=== PATIENT | female | born 1960 | race Caucasian/White ===

== ENCOUNTER 2019-06-07 18:23 | Emergency (ER) | payer BC ==
[~2019-06-07] VITALS: Ht 170.2 cm; Wt 72.7 kg
[~2019-06-07 18:23] MED LIST: BAYER CHEWABLE81 MG PO; CELEXA20 MG PO; HYDROCHLOROTHIA25 MG PO; HYDROCODON-ACE1 EAC7 PO; HYDROCODONE-APA1 TAB PO; IBUPROFEN600 MG PO; SYNTHROID125 MCG PO; VERAPAMIL HCL40 MG PO; ZESTRIL40 MG PO
[2019-06-07 19:28] VITALS: Ht 170.2 cm; Wt 72.7 kg
[2019-06-07 20:03] LABS: BASOPHILS 0.3 % (0-2); HEMOGLOBIN 13.5 g/dL (12-16); IMMATURE GRANULOCYTES 0.2 % (0-5); MCH 32.1 pg (26.0-34.0); MCHC 34.6 g/dL (31.0-37.0); MCV 92.6 fL (80.0-100.0); MEAN PLATELET VOLUME 8.8 fL (7.4-10.4); MONOCYTES 8.9 % (2-11); NEUTROPHILS 40.6 % (40-80); PLATELET COUNT 224 10x3/uL (130-400); RBC 4.21 10x6/uL (4.00-5.40); RDW 13.5 % (11.5-14.5); WBC 6.3 10x3/uL (4.8-10.8)
[2019-06-07 20:19] LABS: ALBUMIN 3.8 g/dL (3.4-5.0); ANION GAP 12.9 mmol/L (8-16); BILIRUBIN - TOTAL 0.66 mg/dL (0.2-1.3); CALCIUM 8.3 mg/dL (8.5-10.1); CARBON DIOXIDE 28.6 mmol/L (21.0-32.0); CREATININE - SERUM 0.9 mg/dL (0.6-1.3); POTASSIUM - SERUM 3.5 mmol/L (3.5-5.1)
[2019-06-07 20:28] LABS: MAGNESIUM - SERUM 2.1 mg/dL (1.8-2.4); THYROID STIMULATING HORMONE 2.15 uIU/mL (0.36-3.74)
[2019-06-07 20:57] LABS: APPEARANCE CLEAR (CLEAR); BILIRUBIN NEGATIVE (NEGATIVE); COLOR YELLOW (YELLOW); GLUCOSE NEGATIVE (NEGATIVE); KETONE NEGATIVE (NEGATIVE); NITRITE NEGATIVE (NEGATIVE); PROTEIN TRACE mg/dL (NEGATIVE); UROBILINOGEN NORMAL (NORMAL)
[2019-06-07 21:02] LABS: BACTERIA FEW /hpf (NONE SEEN); EPITHELIAL CELLS 0-5 /hpf (0-5); RED CELLS - URINE 0-5 /hpf (0-5); WHITE CELLS - URINE 0-5 /hpf (0-5)
[2019-06-07 21:07] LABS: UDS - AMPHET NEGATIVE QUAL (NEGATIVE); UDS - BARB NEGATIVE QUAL (NEGATIVE); UDS - BENZO NEGATIVE QUAL (NEGATIVE); UDS - COCAINE NEGATIVE QUAL (NEGATIVE); UDS - OPIATE NEGATIVE QUAL (NEGATIVE); UDS - PCP NEGATIVE QUAL (NEGATIVE); UDS - THC NEGATIVE QUAL (NEGATIVE)
[2019-06-08 02:48] VITALS: BP 87/55
--- NOTE | 2019-06-08 05:31 | NUR ---
DR PAYNE NOTIFIED AND REVIEWED PT'S BEHAVIOR AND ASSESSMENT RESULTS. PT IS A LOW RISK PER DR PAYNE. DR PAYNE STATED TO GIVE RESOURCES TO PT AT TIME OF DISCHARGE. NO FURTHER ORDERS AT THIS TIME. RESOURCES REVIEWED WITH PT AND SHE VERBALIZED UNDERSTANDNG.
[2019-06-08 07:59] LABS: INR 0.93 (0.85-1.17)
[2019-06-08 08:00] LABS: APTT 27.1 SECONDS (22.8-39.4)
== END 2019-06-08 10:44 ==
LOC: D.ER 18:23
PROVIDERS: Emergency Medicine; Family Medicine
DX: F32.9 Major depressive disorder, single episode, unspecified (principal)

== ENCOUNTER 2020-04-28 07:12 | Inpatient (IN) | payer BC ==
[~2020-04-28] VITALS: Ht 170.2 cm; Wt 81.6 kg
[2020-04-28 07:55] LABS: BASOPHILS 0.1 % (0-2); EOSINOPHILS 1.4 % (0-7); HEMATOCRIT 39.7 % (36.0-48.0); HEMOGLOBIN 13.4 g/dL (12-16); IMMATURE GRANULOCYTES 0.1 % (0-5); LYMPHOCYTES 16.9 % (15-50); MCH 31.8 pg (26.0-34.0); MCHC 33.8 g/dL (31.0-37.0); MCV 94.1 fL (80.0-100.0); MEAN PLATELET VOLUME 9.4 fL (7.4-10.4); MONOCYTES 6.9 % (2-11); NEUTROPHILS 74.6 % (40-80); RBC 4.22 10x6/uL (4.00-5.40); RDW 12.5 % (11.5-14.5)
[2020-04-28 07:57] LABS: PLATELET COUNT 170 10x3/uL (130-400)
[2020-04-28 08:03] LABS: CALC OSMOLALITY 267 mosm/kg (275-300); CALCIUM 8.9 mg/dL (8.5-10.1); CARBON DIOXIDE 24.9 mmol/L (21.0-32.0); CHLORIDE - SERUM 96 mmol/L (98-107); CREATININE - SERUM 0.8 mg/dL (0.6-1.3); GLUCOSE 123 mg/dL (74-106); POTASSIUM - SERUM 3.4 mmol/L (3.5-5.1); SODIUM 133 mmol/L (136-145); UREA NITROGEN 14 mg/dL (7-18); eGFR NON AFRICAN AMERICAN 78 mL/min (90-120)
[2020-04-28 08:12] LABS: ALKALINE PHOSPHATASE 98 U/L (30-120); ALT (SGPT) 63 U/L (10-68); AMYLASE - SERUM 51 U/L (25-115); BILIRUBIN - TOTAL 1.58 mg/dL (0.2-1.3); LIPASE 150 U/L (73-393); PROTEIN - SERUM 7.4 g/dL (6.4-8.2); TROPONIN-I < 0.017 ng/mL (0.000-0.060)
[2020-04-28 10:12] LABS: BILIRUBIN NEGATIVE (NEGATIVE); GLUCOSE NEGATIVE (NEGATIVE); KETONE NEGATIVE (NEGATIVE); NITRITE NEGATIVE (NEGATIVE); UROBILINOGEN NORMAL (NORMAL)
--- NOTE | 2020-04-28 10:31 | NUR ---
BLADDER SCAN SHOWED 350ML RETAINED URINE
--- NOTE | 2020-04-28 11:14 | NUR ---
PT TRANSFERRED TO MRI AT THIS TIME.
--- NOTE | 2020-04-28 11:34 | NUR ---
CALLED REPORT TO HAYDEE AT THIS TIME. WILL AWAIT PATIENT TO RETURN FROM [facility] AND TRANSPORT AT THIS TIME.
--- NOTE | 2020-04-28 12:16 | NUR ---
PT RETURNED TO ED AT THIS TIME.
[2020-04-28] MEDS ORDERED: BUSPIRONE HCL30 MG PO (13:49)
[2020-04-28 14:08] VITALS: BP 144/88
--- NOTE | 2020-04-28 14:20 | NUR ---
ALERT AND ORIENTED X4.IVF AND FRONT END DRIVER SET UP PER ORDERS. ABDOMEN DISTENDED WITH TENDERNESSAND PAIN 6/10 TO RUQ ANTERIOR WITH BOWEL SOUNDS NOTED X4. STRICKLAND CATH PATENT WITH CLEAR ROXANNE URINE NOTED.
[2020-04-28 17:03] VITALS: BP 161/87
[2020-04-28 20:00] VITALS: BP 138/85
[2020-04-29] VITALS: BP 138/80
--- NOTE | 2020-04-29 02:11 | NUR ---
I have reviewed this patient and I concur with the Shift Assessment completed by the Licensed Practical Nurse today this shift.
[2020-04-29 06:11] LABS: BASOPHILS 0.1 % (0-2); EOSINOPHILS 2.1 % (0-7); HEMATOCRIT 40.1 % (36.0-48.0); HEMOGLOBIN 13.2 g/dL (12-16); IMMATURE GRANULOCYTES 0.3 % (0-5); LYMPHOCYTES 15.2 % (15-50); MCH 31.5 pg (26.0-34.0); MCHC 32.9 g/dL (31.0-37.0); MCV 95.7 fL (80.0-100.0); MEAN PLATELET VOLUME 9.4 fL (7.4-10.4); MONOCYTES 7.2 % (2-11); NEUTROPHILS 75.1 % (40-80); PLATELET COUNT 186 10x3/uL (130-400); RBC 4.19 10x6/uL (4.00-5.40); WBC 9.5 10x3/uL (4.8-10.8)
[2020-04-29 06:44] LABS: ALKALINE PHOSPHATASE 92 U/L (30-120); BILIRUBIN - TOTAL 1.33 mg/dL (0.2-1.3); CALC OSMOLALITY 277 mosm/kg (275-300); CALCIUM 8.7 mg/dL (8.5-10.1); CARBON DIOXIDE 24.3 mmol/L (21.0-32.0); CHLORIDE - SERUM 102 mmol/L (98-107); CREATININE - SERUM 0.8 mg/dL (0.6-1.3); GLUCOSE 102 mg/dL (74-106); POTASSIUM - SERUM 3.5 mmol/L (3.5-5.1); SODIUM 139 mmol/L (136-145); UREA NITROGEN 13 mg/dL (7-18); eGFR NON AFRICAN AMERICAN 78 mL/min (90-120)
[2020-04-29 06:45] LABS: ALT (SGPT) 86 U/L (10-68)
[2020-04-29 08:41] VITALS: BP 141/96
--- NOTE | 2020-04-29 11:18 | NUR ---
REC'D IN BED AWAKE AND ALERT. RESP EVEN AND UNLABORED WITH NO DISTRESS NOTED. CAN EXPRESS NEEDS AND WANTS. NO C/O NOTED OR VOICED. ASSESSMENT COMPLETED. C/L IN REACH AT BEDSIDE.
[2020-04-29 12:27] VITALS: BP 153/92
[2020-04-29 14:21] VITALS: Ht 170.2 cm; Wt 81.6 kg
[2020-04-29 16:38] VITALS: BP 118/74
--- NOTE | 2020-04-29 18:45 | NUR ---
I have reviewed this patient and I concur with the Shift Assessment completed by the Licensed Practical Nurse today this shift.
[2020-04-29 20:00] VITALS: BP 160/72
--- NOTE | 2020-04-29 20:30 | NUR ---
SITTING UP ON SIDE OF BED. ALERT AND ORIENTED X4. RESP NONLABORED. ABD DISTENDED AND FIRM. BOWEL SOUNDS HYPOACTIVE. NEW ORDER NOTED FOR ENEMAS X3 AND EXPLAINED TO PT. STRICK[place] CATH DC/D AT THIS TIME PER VERBAL ORDER FROM WILL ROSENBAUM. AMBULATORY. NO N/V OR PAIN. NS @ 125 MLHR INFUSING IN LT HAND. 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 CL IN REACH.
--- NOTE | 2020-04-29 20:40 | NUR ---
FLEETS ENEMA GIVEN AT THIS TIME. PT IMMEDIATELY GOT UP TO BSC AND EXPELLED ENEMA. VERY SMALL AMOUNT SOFT BM NOTED.
--- NOTE | 2020-04-29 21:30 | NUR ---
2ND FLEETS ENEMA GIVEN. PT IMMEDIATELY GETS UP TO BSC. SMALL SOFT BM NOTED.
--- NOTE | 2020-04-29 22:35 | NUR ---
3RD FLEETS ENEMA GIVEN. SMALL BM NOTED. NO DISTRESS.
[2020-04-30] VITALS: BP 139/93
--- NOTE | 2020-04-30 03:00 | NUR ---
VOIDED 700 ML OF CLOUDY YELLOW URINE.
[2020-04-30 04:00] VITALS: BP 140/87
[2020-04-30 05:08] LABS: BASOPHILS 0.1 % (0-2); EOSINOPHILS 2.7 % (0-7); HEMATOCRIT 39.6 % (36.0-48.0); IMMATURE GRANULOCYTES 0.2 % (0-5); LYMPHOCYTES 20.9 % (15-50); MCH 31.6 pg (26.0-34.0); MCHC 32.8 g/dL (31.0-37.0); MCV 96.1 fL (80.0-100.0); MEAN PLATELET VOLUME 9.3 fL (7.4-10.4); MONOCYTES 7.9 % (2-11); NEUTROPHILS 68.2 % (40-80); PLATELET COUNT 181 10x3/uL (130-400); RBC 4.12 10x6/uL (4.00-5.40)
[2020-04-30 05:29] LABS: ALBUMIN 3.7 g/dL (3.4-5.0); ALKALINE PHOSPHATASE 90 U/L (30-120); ALT (SGPT) 67 U/L (10-68); CALC OSMOLALITY 276 mosm/kg (275-300); CALCIUM 8.7 mg/dL (8.5-10.1); CHLORIDE - SERUM 103 mmol/L (98-107); CREATININE - SERUM 0.7 mg/dL (0.6-1.3); GLUCOSE 121 mg/dL (74-106); PROTEIN - SERUM 7.2 g/dL (6.4-8.2); SODIUM 138 mmol/L (136-145); T4 THYROXIN - FREE 1.22 ng/dL (0.76-1.46); THYROID STIMULATING HORMONE 2.58 uIU/mL (0.36-3.74); UREA NITROGEN 13 mg/dL (7-18); eGFR NON AFRICAN AMERICAN > 90 mL/min (90-120)
[2020-04-30 05:36] LABS: CARBON DIOXIDE 30.7 mmol/L (21.0-32.0)
--- NOTE | 2020-04-30 09:00 | NUR ---
ALERT AND ORIENTED X4. DENIES ANY ABDOMINAL PAIN OR DISCOMFORT. ABDOMEN SOFT WITH BOWEL SOUNDS NOTED X4. UP ADLIB WITH IVF INFUSING TO LT. F/A W/O S/S OF INFECTION/INFILTRATION. ENCOURAGED TO USE CALL LIGHT FOR ASSIST
[2020-04-30 09:07] VITALS: BP 149/94
[2020-04-30] MEDS ORDERED: CARAFATE1 G PO (11:01)
--- NOTE | 2020-04-30 13:24 | NUR ---
IV DISCONTINUED AND VERBALIZED UNDERSTANDING OF DISCHARGE INSTRUCTIONS. STABLE AT TIME OF DEPARTURE.
[2020-05-01 16:09] LABS: ALPHA FETOPROTEIN -(TUMOR MRK) 8.6 ng/mL (0.0-8.3); CEA 2.1 ng/mL (0.0-4.7)
== END 2020-04-30 13:24 | disposition home or self-care (01) | DRG 316 ==
LOC: D.ER 07:12 → D.MS 11:20
PROVIDERS: Family Medicine; ADMIT Emergency Medicine; ATTEND Emergency Medicine
DX: D18.09 Hemangioma of other sites (principal); K76.9 Liver disease, unspecified; R16.0 Hepatomegaly, not elsewhere classified; R10.9 Unspecified abdominal pain; R11.2 Nausea with vomiting, unspecified; I10 Essential (primary) hypertension; R73.9 Hyperglycemia, unspecified; K59.00 Constipation, unspecified